=== PATIENT | female | born 1950 | race Caucasian/White ===

== ENCOUNTER 2021-12-24 10:33 | Outpatient (CLI) | payer MEDICARE, SELFPAY ==
[2021-12-24 14:29] LABS: Albumin* 5.1 g/dL (3.3-5.0); Chloride* 93 mmol/L (96-114); Sodium* 132 mmol/L (135-149)
[2021-12-24 14:30] LABS: Potassium* 4.4 mmol/L (3.6-5.1)
[2021-12-24 14:32] LABS: Alkaline Phosphatase* 103 U/L (40-150); Aspartate Amino Transferase* 33 U/L (12-35); Bilirubin Total* 0.5 mg/dL (0.1-1.5); Blood Urea Nitrogen* 11 mg/dL (7-30); Carbon Dioxide* 27 mmol/L (20-32); Creatinine* 0.6 mg/dL (0.5-1.5); Estimated Glomerular Filt Rate 97 ml/min; Total Protein* 7.4 g/dL (6.0-8.3)
[2021-12-24 14:33] LABS: Alanine Aminotransferase* 26 U/L (4-35); Glucose* 132 mg/dL (60-115)
[2021-12-24 15:19] LABS: Vitamin B12* 926 pg/mL (243-894)
== END 2021-12-24 10:34 | disposition home or self-care (01) ==
PROVIDERS: PCP Family Medicine; Visit Provider Family Medicine
DX: I10 Essential (primary) hypertension (principal); E03.9 Hypothyroidism, unspecified; R73.03 Prediabetes; Z86.39 Personal history of other endocrine, nutritional and metabolic disease
CPT/HCPCS: 80053; 82607; 84443

== ENCOUNTER 2022-06-12 09:19 | Outpatient (CLI) | payer MEDICARE, SELFPAY ==
--- NOTE | 2022-06-12 10:15 | CRLHL7_ITS ---
For Patients: As a result of the Century Cures Act, medical imaging exams and procedure reports are released immediately into your electronic medical record. You may view this report before your referring provider. If you have questions, please contact your health care provider. INDICATION: Fall. Cognitive changes. Dementia. TECHNIQUE: Multiplanar multisequence noncontrast MR images acquired through the brain. COMPARISON: None. FINDINGS: Prominence of the ventricles and sulci compatible with mild diffuse cerebral volume loss. No mass effect or midline shift. Patchy and confluent T2 FLAIR hyperintensities in the supratentorial white matter, nonspecific though typical for moderately advanced chronic microvascular ischemic changes. No intracranial hemorrhage or pathologic extra-axial fluid collection. No diffusion restriction to suggest acute infarction. The major arterial flow voids of the skullbase are preserved. The globes are symmetric. The paranasal sinuses are well aerated. Minimal left mastoid fluid. IMPRESSION: 1. No acute infarction, mass effect, or intracranial hemorrhage. 2. Moderately advanced chronic microvascular ischemic changes and mild diffuse cerebral volume loss. Dictated by Mat Sandoval MD @ 06/12/2022 11:48:29 AM (Electronically Signed)
== END 2022-06-12 09:20 | disposition home or self-care (01) ==
LOC: MRI 09:23
PROVIDERS: PCP Family Medicine; Visit Provider Family Medicine
DX: F03.90 Unspecified dementia, unspecified severity, without behavioral disturbance, psychotic disturbance, mood disturbance, and anxiety (principal); I67.82 Cerebral ischemia; W10.8XXA Fall (on) (from) other stairs and steps, initial encounter; R41.89 Other symptoms and signs involving cognitive functions and awareness
CPT/HCPCS: 70551

== ENCOUNTER 2022-06-27 10:05 | Outpatient (CLI) | payer MEDICARE, SELFPAY | END 2022-06-27 10:06 | disposition home or self-care (01) | PROVIDERS: PCP Family Medicine; Visit Provider Family Medicine | DX: I10 Essential (primary) hypertension (principal); E78.5 Hyperlipidemia, unspecified; E03.9 Hypothyroidism, unspecified; E53.8 Deficiency of other specified B group vitamins; E11.9 Type 2 diabetes mellitus without complications | CPT/HCPCS: 80053; 80061; 82043; 82570; 83036; 83735; 84439; 84443 ==

== ENCOUNTER 2023-07-03 09:33 | Outpatient (CLI) | payer MEDICARE, SELFPAY | END 2023-07-03 09:34 | disposition home or self-care (01) | LOC: NFLDREF 07-04 06:41 | PROVIDERS: PCP Emergency Medicine; Referring Provider Emergency Medicine; Visit Provider Emergency Medicine | DX: Z00.00 Encounter for general adult medical examination without abnormal findings (principal); R73.03 Prediabetes; E03.9 Hypothyroidism, unspecified; E53.8 Deficiency of other specified B group vitamins; E78.5 Hyperlipidemia, unspecified; R79.0 Abnormal level of blood mineral; R41.89 Other symptoms and signs involving cognitive functions and awareness; I10 Essential (primary) hypertension; D64.9 Anemia, unspecified; M85.9 Disorder of bone density and structure, unspecified | CPT/HCPCS: 80053; 80061; 82607; 83735; 84443 ==

== ENCOUNTER 2023-07-08 13:09 | Outpatient (CLI) | payer MEDICARE, SELFPAY | END 2023-07-08 13:10 | disposition home or self-care (01) | PROVIDERS: PCP Emergency Medicine; Visit Provider Emergency Medicine | DX: E53.8 Deficiency of other specified B group vitamins (principal); D64.9 Anemia, unspecified; R79.0 Abnormal level of blood mineral | CPT/HCPCS: 82306; 82728; 82746 ==

== ENCOUNTER 2023-07-22 12:23 | Outpatient (CLI) | payer MEDICARE, SELFPAY | END 2023-07-22 12:24 | disposition home or self-care (01) | PROVIDERS: PCP Emergency Medicine; Visit Provider Emergency Medicine | DX: E11.9 Type 2 diabetes mellitus without complications (principal); D64.9 Anemia, unspecified | CPT/HCPCS: 82043; 82570; 83540; 83550 ==

== ENCOUNTER 2023-09-23 14:19 | Outpatient (CLI) | payer MEDICARE, SELFPAY | END 2023-09-23 14:20 | disposition home or self-care (01) | PROVIDERS: PCP Emergency Medicine; Visit Provider Emergency Medicine | DX: E03.9 Hypothyroidism, unspecified (principal); E53.8 Deficiency of other specified B group vitamins; R79.0 Abnormal level of blood mineral | CPT/HCPCS: 82607; 83735; 84439; 84443 ==

== ENCOUNTER 2023-10-07 14:42 | Outpatient (CLI) | payer MEDICARE, SELFPAY | END 2023-10-07 14:43 | disposition home or self-care (01) | PROVIDERS: PCP Emergency Medicine; Visit Provider Emergency Medicine | DX: E83.42 Hypomagnesemia (principal); E83.39 Other disorders of phosphorus metabolism; E03.9 Hypothyroidism, unspecified | CPT/HCPCS: 83735; 84100; 84443 ==